=== PATIENT | male | born 2000 | race Hispanic/Latino ===

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

== ENCOUNTER 2022-04-25 20:43 | Emergency (ER) | payer BC, OTHER ==
[~2022-04-25] VITALS: Ht 185.4 cm; Wt 77.1 kg
[~2022-04-25 20:43] MED LIST changes: +ELIMITE60 GM TOP
[2022-04-25] MEDS ORDERED: CEPHALEXIN 500 MG CAP PO SCH (21:45)
[2022-04-25] MEDS ORDERED: DIPHTH/TETANUS/ACEL. PERTUSSIS 0.5 ML SYR IM ONE (21:45)
[2022-04-25] MEDS ORDERED: LIDOCAINE HCL 2% 2 ML AMP INJ ONE (21:45)
[2022-04-25] MEDS ORDERED: LORAZEPAM 0.5 MG TAB ONE (21:59)
[2022-04-25] MEDS ORDERED: TETANUS/DIPHTHERIA TOX ADULT 0.5 ML SYR ONE (22:20)
[2022-04-25] MEDS ORDERED: LIDOCAINE HCL 2% LOCAL 20 ML VIAL ONE (22:20)
[2022-04-25] MEDS ORDERED: CEPHALEXIN MONOHYDRATE 250 MG CAP ONE (22:20)
[2022-04-25] MEDS ORDERED: KEFLEX125 MG/5 M PO (22:52)
[2022-04-25] MEDS ORDERED: BACITRACIN/POLYMYXIN 30 GM OINT TP SCH (23:00)
[2022-04-25] MEDS ORDERED: BACITRACIN ZINC 0.9GM TP ONE ×2 (23:02→23:15)
== END 2022-04-25 23:10 | disposition home or self-care (01) ==
LOC: FSED 21:28
DX: S51.811A Laceration without foreign body of right forearm, initial encounter (principal); W25.XXXA Contact with sharp glass, initial encounter; Y93.01 Activity, walking, marching and hiking; Y99.0 Civilian activity done for income or pay
CPT/HCPCS: 12001; 73090; 90471; 90714; 99283; J2001